=== PATIENT | female | born 1970 | race African-American/Black ===

== ENCOUNTER 2018-02-15 18:32 | Emergency (ER) | payer BC ==
[~2018-02-15] VITALS: Ht 160 cm; Wt 62.0 kg
[2018-02-15 21:23] LABS: HEMATOCRIT. 33.4 % (36.0-48.0); HEMOGLOBIN. 11.2 g/dL (12.0-16.0); MEAN CORPUSCULAR HEMOGLOBIN 29.1 pg (28.0-32.0); MEAN PLATELET VOLUME 6.8 fl (7.4-10.4); PLATELET 333 x1000/uL (130-400); RED BLOOD CELL COUNT 3.84 mill/uL (4.2-5.4); RED CELL DISTRIBUTION WIDTH 14.4 % (11.6-14.6)
[2018-02-15 21:26] LABS: CHLORIDE 105 mEq/L (98-107)
[2018-02-15 21:29] LABS: PROTHROMBIN TIME 10.8 sec (9.4-11.6)
[2018-02-15 22:24] LABS: ATYPICAL LYMPHOCYTES 1; PLATELET ESTIMATE NORMAL
[2018-02-15 23:07] LABS: CLARITY URINE CLEAR (CLEAR); COLOR URINE YELLOW (YELLOW); KETONES URINE NEGATIVE (NEGATIVE); LEUKOCYTE ESTERASE URINE TRACE (NEGATIVE); NITRITE URINE NEGATIVE (NEGATIVE); OCCULT BLOOD URINE NEGATIVE (NEGATIVE); PH URINE 7.5 (4.5-8.0); PROTEIN URINE NEGATIVE (NEGATIVE); UROBILINOGEN URINE 0.2 E.U./dL (0.2-1.0)
[2018-02-15 23:45] VITALS: BP 121/69
[2018-02-15] MEDS ORDERED: OXYCODONE HCL/ACETAMINOPHEN 5/325MG TABLET PO ONE (23:45)
[2018-02-15] MEDS ORDERED: NITROFURANTOIN 100MG M/M CAPSULE PO ONE (23:45)
[2018-02-15] MEDS ORDERED: ONDANSETRON HCL 4MG TABLET PO ONE (23:45)
== END 2018-02-16 00:15 | disposition home or self-care (01) ==
LOC: ER 18:32
DX: N39.0 Urinary tract infection, site not specified (principal); R51 Headache; R79.1 Abnormal coagulation profile
CPT/HCPCS: 36415; 80053; 81003; 81025; 85025; 85610; 99284; Q0162